=== PATIENT | male | born 1965 | race African-American/Black ===

== ENCOUNTER 2016-07-01 14:02 | Emergency (ER) | payer OTHER ==
[~2016-07-01 14:02] MED LIST: ALLOPURINOL100 MG PO; INDOMETHACIN50 MG PO
[2016-07-01] MEDS ORDERED: ALLOPURINOL300 M1 PO (14:10)
[2016-07-01] MEDS ORDERED: ATORVASTATIN CA20 M1 PO (14:11)
[2016-07-01] MEDS ORDERED: BISOPROLOL FUMAR5 M1 PO (14:11)
[2016-07-01] MEDS ORDERED: AMLODIPINE BESYL5 M1 PO (14:11)
[2016-07-01] MEDS ORDERED: METFORMIN HCL500 M3 PO (14:12)
--- NOTE | 2016-07-01 14:21 | ED GENERAL ADULT ---
History of Present Illness General Chief Complaint: General Adult Stated Complaint: "I HAVE HIGH BS" Source: patient, family, old records Exam Limitations: no limitations Vital Signs & Intake/Output Vital Signs & Intake/Output Vital Signs Date Time Temp Pulse Resp B/P Pulse O2 O2 Flow FiO2 Ox Delivery Rate 07/02 2047 97.1 88 16 127/70 95 Room Air 07/01 1524 95 Room Air 07/01 1410 98.2 82 20 137/76 Allergies Coded Allergies: NO KNOWN ALLERGIES (11/26/11) Reconcile Medications Allopurinol 300 MG TABLET 1 TAB PO DAILY GOUT (Reported) Amlodipine Besylate 5 MG TABLET 1 TAB PO DAILY HTN (Reported) Atorvastatin Calcium 20 MG TABLET 1 TAB PO DAILY CHOL (Reported) Bisoprolol Fumarate 5 MG TABLET 1 TAB PO DAILY HTN (Reported) Insulin Glargine/Lixisenatide (Soliqua 100 Unit-33 Mcg/Ml Pen) (Unknown Strength ) INSULN.PEN (Unknown Dose) SC DAILY DIABETES (Reported) Metformin HCl 500 MG TABLET 1 TAB PO BID DM (Reported) Triage Note: PER PT RECENT DX SUNDAY 06/25 DX OF DIABETES THEY GAVE ME THE STUFF, BUT DID NOT TELL ME HOW TO USE IT. TODAY SUGAR HIGH. FS IN TRIAGE 457.PT HAS NO SYMPTOMS BUT NOT SURE HE IS DOING IT RIGHT Triage Nurses Notes Reviewed? yes HPI: Patient was diagnosed with diabetes last week by his primary care physician. Patient was given a prescription for metformin as well as insulin. Patient is unsure how much insulin to take. Patient called the nurse at the practice and was told to take 32 units. Patient has been doing so but his fingerstick is been running high. Patient states that he is paying often and very thirsty. Patient denies any abdominal pain, nausea or vomiting. There are no fevers or chills. Patient comes in for evaluation. (TOM FLORES,PHIL Govea) Past History Travel History Traveled to [place] past 21 day No Medical History Any Pertinent Medical History? see below for history Neurological: NONE EENT: NONE Cardiovascular: NONE Respiratory: NONE Gastrointestinal: NONE Hepatic: NONE Renal: NONE Musculoskeletal: NONE Psychiatric: NONE Endocrine: IDDM Blood Disorders: GOUT Surgical History Surgical History: non-contributory, N Psychosocial History What is your primary language Latvian Tobacco Use: Quit <30 days ago ETOH Use: occasional use Illicit Drug Use: denies illicit drug use Family History Hx Contributory? No (TOM FLORES,PHIL Govea) Review of Systems Review of Systems Constitutional: Reports: no symptoms. EENTM: Reports: no symptoms. Respiratory: Reports: no symptoms. Cardiovascular: Reports: no symptoms. GI: Reports: no symptoms. Genitourinary: Reports: no symptoms. Musculoskeletal: Reports: no symptoms. Skin: Reports: no symptoms. Neurological/Psychological: Reports: no symptoms. Hematologic/Endocrine: Reports: no symptoms. Immunologic/Allergic: Reports: no symptoms. All Other Systems: Reviewed and Negative (TOM FLORES,PHIL Govea) Physical Exam Physical Exam General Appearance: well developed/nourished, alert, awake, anxious, mild distress Head: atraumatic, normal appearance Eyes: Bilateral: PERRL, EOMI. Ears, Nose, Throat: normal pharynx, normal ENT inspection, hearing grossly normal Neck: normal inspection, supple, full range of motion Respiratory: normal breath sounds, chest non-tender, no respiratory distress, lungs clear Cardiovascular: regular rate/rhythm, normal peripheral pulses Gastrointestinal: normal bowel sounds, soft, non-tender, no organomegaly Back: normal inspection, normal range of motion Extremities: normal inspection, normal capillary refill, normal range of motion, no edema Neurologic/Psych: no motor/sensory deficits, awake, alert, oriented x 3, normal gait Skin: intact, normal color, warm/dry Lymphatic: no anterior cervical marissa Core Measures ACS in differential dx? No CVA/TIA Diagnosis: No Severe Sepsis Present: No Septic Shock Present: No (TOM FLORES,PHIL Govea) Progress Differential Diagnoses I considered the following diagnoses in my evaluation of the patient: [ HYPERGLYCEMIA, ELECTROLYTE ABNORMALITY, DKA, HONK] Plan of Care: Orders Procedure Date/time Status BASIC METABOLIC PANEL 07/01 1722 Complete ACETONE 07/01 1722 Complete MIXED VENOUS BLOOD GAS (GEN) 07/01 1405 Active URINALYSIS 07/01 1405 Complete COMPREHENSIVE METABOLIC PANEL 07/01 1405 Complete CBC WITHOUT DIFFERENTIAL 07/01 1405 Complete ACETONE 07/01 1405 Complete Laboratory Tests 07/01/16 1853: Anion Gap 14, Estimated GFR > 60, BUN/Creatinine Ratio 26.4 H, Glucose 359 H, Calcium 9.1, Acetone Level POSITIVE AT 1:4 DIL 07/01/16 1545: Urine Color STRAW, Urine Clarity CLEAR, Urine pH 6.0, Ur Specific [place] 1.010, Urine Protein NEG, Urine Ketones 15 H, Urine Nitrite NEG, Urine Bilirubin NEG@ ICTO, Urine Urobilinogen 0.2, Ur Leukocyte Esterase NEG, Ur Microscopic EXAM NOT REQUIRED, Urine Hemoglobin NEG, Urine Glucose >=1000 H 07/01/16 1535: Bicarbonate Actual 25, Mixed VBG pH 7.33, Mixed VBG pCO2 49, Mixed VBG O2 Saturation 31 L, Carboxyhemoglobin 0.8 L, O2 Concentration % RA, Temperature 98.6 07/01/16 1444: Anion Gap 15, Estimated GFR 58 L, BUN/Creatinine Ratio 27.7 H, Glucose 545 *H, Calcium 10.4 H, Total Bilirubin 0.6, AST 15 L, ALT 35, Alkaline Phosphatase 97 , Total Protein 6.7, Albumin 3.9, Globulin 2.8, Albumin/Globulin Ratio 1.4, CBC w Diff NO MAN DIFF REQ, RBC 6.15 H, MCV 78.5 L, MCH 25.4 L, RDW 15.2 H, MPV 9.4, Gran % 36.1 L, Lymphocytes % 48.7, Monocytes % 9.3, Eosinophils % 4.0, Basophils % 1.9, Absolute Granulocytes 1.3 L, Absolute Lymphocytes 1.7, Absolute Monocytes 0.3, Absolute Eosinophils 0.1, Absolute Basophils 0.1, PUBS MCHC 32.3 L, Acetone Level POSITIVE AT 1:4 DIL Initial ED EKG: none Hand-Off Endorsed To: LAVONNE LARA MD Endorsed Time: 1899 Pending: labs (PHIL SANTOS MD) Departure Departure Disposition: HOME OR SELF CARE Condition: Stable Clinical Impression Primary Impression: Hyperglycemia Referrals: ROBERTH MARRUFO MD (PCP/Family) Additional Instructions: INCREASE INSULIN TO 36 UNITS CALL YOUR DOCTOR TOMORROW RETURN FOR ANY CONCERNS Departure Forms: Customer Survey General Discharge Information (TOM FLORES,PHIL Govea) Departure Comments 07/01/16, 19:15... pt feels well... glucose improved. RN to teach patient proper technique for administering insulin and checking glucose. pt will follow up with pmd tomorrow. (LAVONNE LARA MD) Critical Care Note Critical Care Note Critical Care Time: non-applicable (PHIL SANTOS MD)
[2016-07-01] MEDS ORDERED: SOLIQUA 100 UNIT3 ML SC (14:22)
[2016-07-01 14:54] LABS: ABSOLUTE BASOPHIL COUNT 0.1 /CUMM (0.0-0.2); ABSOLUTE EOSINOPHIL COUNT 0.1 /CUMM (0.0-0.7); ABSOLUTE GRANULOCYTE CT 1.3 /CUMM (1.4-6.5); ABSOLUTE LYMPH COUNT 1.7 /CUMM (1.2-3.4); ABSOLUTE MONOCYTE COUNT 0.3 /CUMM (0.10-0.60); BASOPHIL % 1.9 % (0.0-2.0); GRANULOCYTE % 36.1 % (42.2-75.2); HEMATOCRIT 48.3 % (42-52); MEAN CORPUSCULAR HGB 25.4 PG (27.0-31.0); MEAN CORPUSCULAR HGB CONC 32.3 G/DL (33.0-37.0); MEAN CORPUSCULAR VOLUME 78.5 FL (80.0-94.0); MEAN PLATELET VOLUME 9.4 FL (7.4-10.4); PLATELET COUNT 153 /CUMM (130-400); RBC DISTRIBUTION WIDTH 15.2 % (11.5-14.5); RED BLOOD CELL CT 6.15 /CUMM (4.70-6.10); WHITE BLOOD CELL COUNT 3.5 /CUMM (4.8-10.8)
[2016-07-01 20:48] VITALS: BP 127/70
== END 2016-07-01 21:02 ==
LOC: ERH 14:02
PROVIDERS: Emergency Medicine
DX: E11.65 Type 2 diabetes mellitus with hyperglycemia (principal); Z79.4 Long term (current) use of insulin
CPT/HCPCS: 81003; 96361; 96374; 99291